=== PATIENT | male | born 1990 | race African-American/Black ===

== ENCOUNTER 2017-07-02 03:50 | Emergency (ER) | payer SELFPAY ==
[2017-07-02 03:57] VITALS: BP 129/90; PULSE 86; TEMP 97.8; BMI 21.7
--- NOTE | 2017-07-02 03:58 | PDOC ---
History of Present Illness - General Chief Complaint: Psychiatric Stated Complaint: MISSED TRAIN,FELT ANXIOUS Time Seen by Provider: 07/02/17 03:52 History Source: Patient Exam Limitations: No Limitations - History of Present Illness Initial Comments: 07/02/17 03:52 This is a 26 yo M with a history of HIV, Asthma, muscle spasms who was brought in to the ER BY AMBULANCE due to agitation and panic. Pt tells me that he is visiting [place] from [place] He arrived here two days ago Initially he was staying at a hotel in [place] He says that he and his friends then went in to the city today HIs story becomes a bit unclear as he states he came back to [place] He has been wandering the area He apparently missed his train back to the [facility] He was noted to be very frustrated and agitated by police officers EMS was called because he was cold and agitated Currently, pt is calm He has no complaints of pain Denies any trauma or injury as of tonight He reports being fatigued He is requesting something to drink PMH: HIV, Asthma PSH: Right foot surgery x 2 MedS: he does not know his medications ALL: codeine -- > shivers Social: social alcohol use, marijuana use, denies other drug use GENERAL/CONSTITUTIONAL: Yes: Fatigue No: fever, chills, weakness, loss of appetite. HEAD, EYES, EARS, NOSE AND THROAT: No: change in vision, ear pain, discharge, sore throat, throat swelling. CARDIOVASCULAR: No: chest pain, lightheadedness, palpitations, syncope RESPIRATORY: No: cough, shortness of breath, wheezing GASTROINTESTINAL: No: nausea, vomiting, diarrhea, abdominal pain GENITOURINARY: No: dysuria, hematuria, frequency, urgency, flank pain. MUSCULOSKELETAL: No: back pain, neck pain, joint pain, muscle swelling or pain SKIN: No: lesions, pallor, rash or easy bruising. NEUROLOGIC: No: headache, vertigo, paresthesias, weakness ENDOCRINE: No: unexplained weight gain or loss HEMATOLOGIC/LYMPHATIC: No: anemia, easy bleeding, swelling nodes. GENERAL: The patient is in no acute distress. HEAD: Normal with no signs of trauma. EYES: PERRLA, EOMI, sclera anicteric, conjunctiva clear. ENT: Ears normal, nares patent, oropharynx clear without exudates. Moist mucous membranes. NECK: Normal range of motion, supple without lymphadenopathy, JVD, or masses. LUNGS: Breath sounds equal, clear to auscultation bilaterally. No wheezes, and no crackles. HEART:Regular rate and rhythm, normal S1 and S2 without murmur, rub or gallop. ABDOMEN: Soft, nontender, normoactive bowel sounds. No guarding, no rebound. No masses palpable. EXTREMITIES: Normal range of motion, no edema. No clubbing or cyanosis. No erythema, or tenderness. NEUROLOGICAL: Cranial nerves II through XII grossly intact. Normal speech. No focal neurological deficits. MUSCULOSKELETAL: Back non-tender to palpation, no CVA tenderness SKIN: Warm, Dry, normal turgor, no rashes or lesions noted. Past History - Past Medical History Allergies/Adverse Reactions: Allergies Allergy/AdvReac Type Severity Reaction Status Date / Time codeine AdvReac Verified 07/02/17 03:58 Home Medications: Ambulatory Orders Unobtainable [Unobtainable] 07/02/17 Medical Decision Making - Medical Decision Making 07/02/17 03:58 This patient presents to the ER with a story that suggests he was anxious and agitated due to missing his train back to the [facility] Pt does not admit to any other complaints, pain Will discharge Pt asked to call his friends to pick him up *DC/Admit/Observation/Transfer Diagnosis at time of Disposition: Fatigue Qualifiers: Fatigue type: other Qualified Code(s): R53.83 - Other fatigue - Discharge Dispostion Disposition: HOME Condition at time of disposition: Stable Admit: No - Patient Instructions Printed Discharge Instructions: DI for Fatigue Additional Instructions: Mr. James Thank you for coming in to the ER tonight Please return to the ER for any other concerns, symptoms or complaints Have a safe trip back to [place]
== END 2017-07-02 04:12 | disposition home or self-care (01) ==
LOC: FER 03:50
DX: R53.83 Other fatigue (principal)
CPT/HCPCS: 99281-25